=== PATIENT | female | born 1995 ===

== ENCOUNTER 2016-08-05 11:58 | Emergency (ER) | payer OTHER ==
--- NOTE | 2016-08-26 20:20 | UC ---
Lizzie Song Michael, scribed for Carin Fautsin DO on 08/05/16 at 1255 . Abdominal Pain Female HPI - HPI Summary HPI Summary: 20 y/o female comes to [facility] for sharp abd pain for the past 2 days. The pt reports that the abd pain was an 8 out of 10 on a pain severity scale this morning, and currently it is 6 out of 10. The pain is aggravated with palpation. The pt states that she was dx with a concussion one month ago at [facility] at [employer] after she tripped and hit her head on a coffee table. She states that her concussion symptoms included [place], fatigue, confusion, and tinnitus. The pt's [place] is still present and takes 600 mg of Ibuprofen twice a day. The pt denies complete brain rest after being dx with the concussion. She also denies dizziness, depression, balance/coordination problems, and n/v. There is no hx of a appendectomy, and her BM have been nml. Her last BM was this morning. - History of Current Complaint Chief Complaint: UCGI Stated Complaint: STOMACH PAIN Time Seen by Provider: 08/05/16 12:37 Hx Obtained From: Patient, Medical Records Hx Last Menstrual Period: 2 wks ago Onset/Duration: Gradual Onset, Lasting Days, Still Present Timing: Intermittent Episodes Lasting: Severity Initially: Mild Severity Currently: Mild Pain Intensity: 6 Pain Scale Used: 0-10 Numeric Location: Discrete At: RLQ, Suprapubic Radiates: No Character: Sharp Aggravating Factor(s): Other: - OTC medication. palpation Alleviating Factor(s): Nothing Associated Signs and Symptoms: Positive: Negative - dizziness. depression. n/v. black tarry stool., Other: - W[place]. fatigue. abd pain.. Negative: Urinary Symptoms Allergies/Adverse Reactions: Allergies Allergy/AdvReac Type Severity Reaction Status Date / Time Tree Nuts Allergy Hives Verified 08/05/16 12:18 Home Medications: Home Medications Ibuprofen TAB* [Motrin TAB* 600 MG] 08/05/16 [History] PMH/Surg Hx/FS Hx/Imm Hx Neurological History Of: Reports: Migraine - concussion - Surgical History Surgical History: None - Family History Known Family History: Negative: Cardiac Disease, Hypertension, Diabetes Family History: pt denies significant FHx - Social History Occupation: Student Lives: With Family Alcohol Use: Occasionally Substance Use Type: None Smoking Status (MU): Never Smoked Tobacco Review of Systems Constitutional: Fatigue Skin: Negative Eyes: Negative ENT: Negative Respiratory: Negative Cardiovascular: Negative Gastrointestinal: Abdominal Pain Genitourinary: Negative Motor: Negative Neurovascular: Negative, Other Musculoskeletal: Negative Neurological: Headache, Other - see hpi Psychological: Negative All Other Systems Reviewed And Are Negative: Yes Physical Exam Triage Information Reviewed: Yes Appearance: Well-Appearing, No Pain Distress, Well-Nourished Vital Signs: Initial Vital Signs Temp 98.2 F 08/05/16 12:12 Pulse 63 08/05/16 12:12 Resp 18 08/05/16 12:12 BP 123/58 08/05/16 12:12 Vital Signs Reviewed: Yes Eyes: Positive: Conjunctiva Clear. Negative: Discharge ENT: Positive: Hearing grossly normal. Negative: Muffled/hoarse voice Neck: Positive: Supple, Nontender Respiratory: Positive: Lungs clear, Normal breath sounds, No respiratory distress, No accessory muscle use Cardiovascular: Positive: RRR, No Murmur Abdomen Description: Positive: Soft, McBurney's Point Tenderness. Negative: Nontender - tender suprapubic, umbilical, and RLQ, Distended, Guarding Bowel Sounds: Positive: Present Musculoskeletal Exam: Normal Neurological: Positive: Alert, Muscle Tone Normal Psychological Exam: Normal Psychological: Positive: Age Appropriate Behavior Skin Exam: Normal - warm. dry. nml color. Abd Pain Female Course/Dx - Course Course Of Treatment: Consulted with Dr. Willingham at 1333. pt will be transfered to [facility] [place] [facility] - Differential Dx/Diagnosis Differential Diagnosis: Appendicitis, Ectopic , Ovarian Cyst, , Urinary Tract Infection Provider Diagnoses: abd pain unknown origin, post concussive syndrom Discharge - Discharge Plan Condition: Stable Disposition: AGAINST MEDICAL ADVICE Referrals: No Primary Care Phys,NOPCP [Primary Care Provider] - The documentation as recorded by the Lizzie carrasco Michael accurately reflects the service I personally performed and the decisions made by , Carin Faustin DO.
== END 2016-08-05 13:37 | disposition left against medical advice (07) ==
LOC: UCEAST 11:58
DX: R10.31 Right lower quadrant pain (principal); R10.30 Lower abdominal pain, unspecified; F07.81 Postconcussional syndrome; G44.309 Post-traumatic headache, unspecified, not intractable; Z32.02 Encounter for pregnancy test, result negative
CPT/HCPCS: 81002; 81025; 99202; G0463